=== PATIENT | male | born 1980 | race Caucasian/White ===

== ENCOUNTER 2017-05-18 09:06 | Emergency (ER) | payer BC ==
[~2017-05-18] VITALS: Ht 190.5 cm; Wt 77.0 kg
[~2017-05-18 09:06] MED LIST: CLIN150 PO
[2017-05-18 09:20] VITALS: BP 125/71; PULSE 88; RESP 18; TEMP 97.8; O2SAT 97
--- NOTE | 2017-05-18 09:59 | PD ---
HPI Chief Complaint: Cold / Flu Symptoms Time Seen by Provider: 09:50 Travel History International Travel<30 days: No Contact w/Intl Traveler<30days: No Traveled to known affect area: No History of Present Illness HPI 37-year-old male presents for evaluation of cough and cold symptoms. He reports that for the past 3 days he has had cough with yellow sputum production , occasional chills and sweats, nasal congestion. He denies sore throat, rash, recent travel. He reports that his children have had similar symptoms. He reports that he did recently receive influenza vaccination. He has no other complaints at this time. [facility] Past Medical History Medical History: Denies Significant Hx Cardiovascular Problems: Yes Diminished Hearing: No Immunizations Current: Yes Past Surgical History Other Surgery: Yes (back) Social History Alcohol Use: No Tobacco Use: Yes (1 ppd) Substance Use: No Allergies-Medications (Allergen,Severity, Reaction): Coded Allergies: No Known Allergies (Verified Adverse Reaction, Unknown, 05/18/17) Reported Meds & Prescriptions Reported Meds & Active Scripts Active Prednisone 20 Mg Tab 20 Mg PO BID 5 Days Proair Hfa 8.5 GM Inh (Albuterol Sulfate) 90 Mcg/Act Aer 2 Puff INH Q4-6H PRN 108 mcg/actuation Cleocin (Clindamycin HCl) 150 Mg Cap 300 Mg PO Q6 10 Days Review of Systems Except as stated in HPI: all other systems reviewed are Neg Physical Exam Narrative GENERAL: Well-developed well-nourished male in no acute distress SKIN: Warm and dry. HEAD: Atraumatic. Normocephalic. EYES: Pupils equal and round. No scleral icterus. No injection or drainage. ENT: No nasal bleeding or discharge. Mucous membranes pink and moist. NECK: Trachea midline. No JVD. CARDIOVASCULAR: Regular rate and rhythm. No murmur appreciated. RESPIRATORY: No accessory muscle use. Mild Auditory wheezing bilaterally. GASTROINTESTINAL: Abdomen soft, non-tender, nondistended. Hepatic and splenic margins not palpable. MUSCULOSKELETAL: No obvious deformities. No clubbing. No cyanosis. No edema. NEUROLOGICAL: Awake and alert. No obvious cranial nerve deficits. Motor grossly within normal limits. Normal speech. PSYCHIATRIC: Appropriate mood and affect; insight and judgment normal. Data Data Last Documented VS Vital Signs Date Time Temp Pulse Resp B/P (MAP) Pulse Ox O2 Delivery O2 Flow Rate FiO2 05/18/17 09:20 97.8 88 18 125/71 (89) 97 Room Air Orders Orders Influenzae A/B Antigen (05/18/17 09:42) Albuterol-Ipratropium Neb (Duoneb Neb) (05/18/17 10:00) Prednisone (Deltasone) (05/18/17 10:00) Ed Discharge Order (05/18/17 10:12) MDM Medical Decision Making Medical Screen Exam Complete: Yes Emergency Medical Condition: Yes Medical Record Reviewed: Yes Differential Diagnosis Reactive airway disease, bronchitis, pneumonia, influenza Narrative Course The patient received DuoNeb therapy and prednisone. Influenza antigen test has been sent. Influenza antigen is negative. The patient appears to have a viral bronchitis with reactive airway disease. He'll be discharged with albuterol inhaler and short course of prednisone. Diagnosis Primary Impression: Reactive airway disease Qualified Codes: J45.909 - Unspecified asthma, uncomplicated Additional Impression: Bronchitis Departure Forms: Tests/Procedures, Work Release Enter return to work date: May 22, 2017 Additional Instructions: Medication as prescribed. Avoid tobacco products. Follow-up with primary care as needed and return for any emergent medical conditions. Med/Other Pt SpecificInfo: Prescription(s) given Scripts Prednisone (Prednisone) 20 Mg Tab 20 MG PO BID for 5 Days, #10 TAB 0 Refills Prov: Betzaida Thomas MD 05/18/17 Albuterol 8.5 GM Inh (Proair Hfa 8.5 GM Inh) 90 Mcg/Act Aer 2 PUFF INH Q4-6H Y for SHORTNESS OF BREATH, #1 INHALER 0 Refills 108 mcg/actuation Prov: Betzaida Thomas MD 05/18/17 Disposition: 01 DISCHARGE HOME Condition: Stable Nishant Pryor May 18, 2017 09:59
[2017-05-18] MEDS ORDERED: predniSONE 20 MG TAB PO ONE (10:00)
[2017-05-18] MEDS ORDERED: PRED20 PO (10:10)
[2017-05-18] MEDS ORDERED: ALBUAER3 INH (10:10)
[2017-05-18] MEDS: RESP: ALBUTEROL 2.5 MG/IPRATROPIUM 0.5 MG NEB (SCH) INH (10:10)
== END 2017-05-18 10:37 | disposition home or self-care (01) ==
LOC: PHEFT 09:06
DX: J45.909 Unspecified asthma, uncomplicated (principal); F17.200 Nicotine dependence, unspecified, uncomplicated
CPT/HCPCS: 87804; 94640; 94664; 99284; J7512

== ENCOUNTER 2017-06-19 17:40 | Emergency (ER) | payer BC ==
[~2017-06-19] VITALS: Ht 190.5 cm; Wt 78.0 kg
[~2017-06-19 17:40] MED LIST changes: +ALBUAER3 INH; +PRED20 PO
[2017-06-19 17:48] VITALS: BP 120/57; PULSE 46; RESP 16; TEMP 98.9; O2SAT 98
[2017-06-19 18:23] LABS: BLOOD, URINE LARGE (NEG); GLUCOSE,URINE NEG (NEG); KETONE, URINE 15 mg/dL (NEG); NITRITE,URINE NEG (NEG)
[2017-06-19 18:32] LABS: URINE COLOR PINK (YELLW/STRAW)
[2017-06-19 18:33] LABS: RBC, URINE INNUM /hpf (0-3); SQUAMOUS EPITHELIAL CELL URINE 0-5 /hpf (0-5); WBC, URINE INNUM /hpf (0-5)
[2017-06-19 18:34] LABS: BACTERIA, URINE FEW /hpf; COMMENT (UR) CULTURE INDICATED; CULTURE IF INDICATED CULTURE INDICATED
[2017-06-19 19:18] VITALS: BP 136/71; PULSE 88; O2SAT 100
[2017-06-19] MEDS ORDERED: SODIUM CHLOR 0.9% 1000 ML INJ 1,000 ML IV ONE (19:36)
--- NOTE | 2017-06-19 19:36 | PD ---
HPI Chief Complaint: Complaint Time Seen by Provider: 19:24 Travel History International Travel<30 days: No Contact w/Intl Traveler<30days: No Traveled to known affect area: No History of Present Illness HPI 37-year-old male presents to the emergency department for hematuria. Patient states yesterday noted discomfort and burning with urination without report of penile discharge. Patient has had no fever or chills. Patient's had nausea without vomiting. Today started having lower abdominal pain and hematuria. Patient has chronic back pain secondary to previous remote surgery and so isn't aware of new back pain. No prior history of UTI pyelonephritis obstructive uropathy or kidney stones. Patient rates pain as moderate to severe. Patient is taking no medications for symptoms. Patient did take a bath with some symptom relief. Patient states due to ongoing discomfort decided to come to the emergency room for evaluation. Patient has no chronic medical conditions. Patient takes no medications on a daily basis. Denies any substance use or alcohol use; admits to tobacco use. PFSH Past Medical History Narrative Medical Back surgery; tobacco use; nursing notes reviewed Cardiovascular Problems: Yes Diminished Hearing: No Immunizations Current: Yes ?: Not Past Surgical History Other Surgery: Yes (back) Social History Alcohol Use: No Tobacco Use: Yes (1 ppd) Substance Use: No Allergies-Medications (Allergen,Severity, Reaction): Coded Allergies: No Known Allergies (Verified Adverse Reaction, Unknown, 06/19/17) Reported Meds & Prescriptions Reported Meds & Active Scripts Active Review of Systems Except as stated in HPI: all other systems reviewed are Neg General / Constitutional: No: Fever, Chills HENT: No: Congestion Cardiovascular: No: Chest Pain or Discomfort Gastrointestinal: Positive: Nausea, Abdominal Pain, No: Vomiting, Diarrhea, Hematemesis, Hematochezia Genitourinary: Positive: Dysuria, Hematuria, Flank Pain, No: Urgency, Frequency Musculoskeletal: No: Myalgias, Arthralgias Skin: No Rash Psychiatric: No: Anxiety Hematologic/Lymphatic: No: Lymph Node Enlargement Physical Exam Narrative GENERAL: Well-developed well-nourished female in no acute distress no respiratory distress SKIN: Warm and dry. HEAD: Normocephalic. EYES: No scleral icterus. No injection or drainage. NECK: Supple, trachea midline. No JVD or lymphadenopathy. CARDIOVASCULAR: Regular rate and rhythm without murmurs, gallops, or rubs. RESPIRATORY: Breath sounds equal bilaterally. No accessory muscle use. GASTROINTESTINAL: Abdomen soft, diffusely tender, nondistended. MUSCULOSKELETAL: No cyanosis, or edema. BACK: Nontender without obvious deformity. Left greater than right CVA tenderness. Data Data Last Documented VS Vital Signs Date Time Temp Pulse Resp B/P (MAP) Pulse Ox O2 Delivery O2 Flow Rate FiO2 06/19/17 19:18 88 136/71 (92) 100 06/19/17 17:48 98.9 16 Orders Orders Urinalysis - C+S If Indicated (06/19/17 17:50) Urine Culture (06/19/17 17:50) Ct Abd/Pel W/O Iv Contrast (06/19/17 ) Complete Blood Count With Diff (06/19/17 19:36) Comprehensive Metabolic Panel (06/19/17 19:36) Ecg Monitoring (06/19/17 19:36) Iv Access Insert/Monitor (06/19/17 19:36) Ketorolac Inj (Toradol Inj) (06/19/17 19:45) Ondansetron Inj (Zofran Inj) (06/19/17 19:45) Sodium Chloride 0.9% Flush (Ns Flush) (06/19/17 19:45) Sodium Chlor 0.9% 1000 Ml Inj (Ns 1000 M (06/19/17 19:36) Ceftriaxone Inj (Rocephin Inj) (06/19/17 19:45) Ed Discharge Order (06/19/17 20:39) Labs Laboratory Tests Test 06/19/17 17:50 06/19/17 20:00 Urine Color PINK Urine Turbidity CLOUDY Urine pH 7.0 Urine Specific [place] 1.020 Urine Protein 100 mg/dL Urine Glucose (UA) NEG mg/dL Urine Ketones 15 mg/dL Urine Occult Blood LARGE Urine Nitrite NEG Urine Bilirubin NEG Urine Leukocyte Esterase LARGE Urine RBC INNUM /hpf Urine WBC INNUM /hpf Urine Squamous Epithelial Cells 0-5 /hpf Urine Bacteria FEW /hpf Microscopic Urinalysis Comment CULTURE INDICATED White Blood Count 18.3 TH/MM3 Red Blood Count 5.06 MIL/MM3 Hemoglobin 14.1 GM/DL Hematocrit 43.9 % Mean Corpuscular Volume 86.9 FL Mean Corpuscular Hemoglobin 28.0 PG Mean Corpuscular Hemoglobin Concent 32.2 % Red Cell Distribution Width 13.0 % Platelet Count 279 TH/MM3 Mean Platelet Volume 8.1 FL Neutrophils (%) (Auto) 80.9 % Lymphocytes (%) (Auto) 10.9 % Monocytes (%) (Auto) 6.1 % Eosinophils (%) (Auto) 0.5 % Basophils (%) (Auto) 1.6 % Neutrophils # (Auto) 14.8 TH/MM3 Lymphocytes # (Auto) 2.0 TH/MM3 Monocytes # (Auto) 1.1 TH/MM3 Eosinophils # (Auto) 0.1 TH/MM3 Basophils # (Auto) 0.3 TH/MM3 CBC Comment DIFF FINAL Differential Comment Blood Urea Nitrogen 10 MG/DL Creatinine 0.86 MG/DL Random Glucose 91 MG/DL Total Protein 7.4 GM/DL Albumin 3.9 GM/DL Calcium Level 8.9 MG/DL Alkaline Phosphatase 65 U/L Aspartate Amino Transf (AST/SGOT) 15 U/L Alanine Aminotransferase (ALT/SGPT) 19 U/L Total Bilirubin 0.5 MG/DL Sodium Level 138 MEQ/L Potassium Level 4.1 MEQ/L Chloride Level 107 MEQ/L Carbon Dioxide Level 22.2 MEQ/L Anion Gap 9 MEQ/L Estimat Glomerular Filtration Rate 100 ML/MIN MDM Medical Decision Making Medical Screen Exam Complete: Yes Emergency Medical Condition: Yes Medical Record Reviewed: Yes Differential Diagnosis UTI urethritis prostatitis renal colic atypical appendicitis Narrative Course Patient with markedly abnormal urine consistent with acute cystitis possible pyelonephritis with chronic back pain that may interfere with patient's impression interpretation of renal colic therefore will proceed with CT abdomen and pelvis. Patient does not want to have IV access for fluids and IV antibiotics Patient has changed his mind is agreeable to have IV access and fluids IV antibiotics; CBC complete metabolic panel CT kidney stone protocol ordered along with 1 L normal saline Toradol 30 mg IV and Rocephin [address] abdomen and pelvis reveals no acute abnormality specifically no obstructive uropathy or hydronephrosis or hydroureter and no perinephric stranding for pyelonephritis or kidney stone or nephrolithiasis also patient's appendix is visualized by the reading radiologist and read as normal and no inflammatory changes are noted on imaging per reading radiologist of the abdominal or pelvic structures. Patient appears to have urinary tract infection for PCR to urine specimen and patient will be discharged with prescription for Cipro. Patient also had a one-time dose of azithromycin in the emergency department. Diagnosis Primary Impression: UTI (urinary tract infection) Referrals: Primary Care Physician call for appointment Patient Instructions: General Instructions Departure Forms: Tests/Procedures, Work Release Special Instructions: no work x 2 days Additional Instructions: Increase fluid hydration Complete course of antibiotic as prescribed; avoid activities that may put strain on your ankles while taking your antibiotic as discussed Follow-up with her primary care provider Monitor temperature every 4 hours with thermometer and take as needed acetaminophen/Tylenol every 4 hours for fever 100.4F or greater Take ibuprofen/Advil/Motrin every 6-8 hours as needed for fever 100.4F or greater or for pain associated inflammation Return to the emergency department for any concerns or change in condition No work 2 days Med/Other Pt SpecificInfo: Prescription(s) given Scripts Phenazopyridine (Pyridium) 100 Mg Tab 100 MG PO Q8H Y for DYSURIA, #6 TAB 0 Refills Prov: Sia Weston MD 06/19/17 Tramadol (Tramadol) 50 Mg Tab 50 MG PO Q6H Y for PAIN, #7 TAB 0 Refills Prov: Sia Weston MD 06/19/17 Ciprofloxacin (Cipro) 500 Mg Tab 500 MG PO BID for Infection for 10 Days, #20 TAB 0 Refills Prov: Sia Weston MD 06/19/17 Disposition: 01 DISCHARGE HOME Condition: Stable Sia Weston MD Jun 19, 2017 19:36
[2017-06-19] MEDS ORDERED: KETOROLAC TROMETHAMINE 30 MG/ML (IVP) VIAL IV PUSH ONE (19:45)
[2017-06-19] MEDS ORDERED: SODIUM CHLORIDE 0.9% FLUSH 10 ML FLUSH IVF PRN (19:45)
[2017-06-19] MEDS ORDERED: ONDANSETRON HCL 4 MG/2 ML VIAL IV PUSH ONE (19:45)
[2017-06-19] MEDS ORDERED: cefTRIAXone INJ 1,000 MG in SODIUM CHLORIDE 0.9% INJ 100 ML IV ONE (19:45)
--- NOTE | 2017-06-19 20:07 | RADRPT ---
EXAM DATE/TIME: 06/19/2017 19:44 [facility] COMPARISON: No previous studies available for comparison. INDICATIONS : Gross hematuria. Bilateral lower abdominal pain. ORAL CONTRAST: No oral contrast ingested. RADIATION DOSE: 12.28 CTDIvol (mGy) MEDICAL HISTORY : None SURGICAL HISTORY : Fusion, lumbar. ENCOUNTER: Initial ACUITY: 1 day PAIN SCALE: 8/10 LOCATION: Bilateral lower quadrant TECHNIQUE: Volumetric scanning of the abdomen and pelvis was performed. Using automated exposure control and ad justment of the mA and/or kV according to patient size, radiation dose was kept as low as reasonably achievable to obtain optimal diagnostic quality images. DICOM format image data is available electro nically for review and comparison. FINDINGS: LOWER LUNGS: The visualized lower lungs are clear. LIVER: Homogeneous density without lesion. There is no dilation of the biliary tree. No calcified gallston es. SPLEEN: Normal size without lesion. PANCREAS: Within normal limits. KIDNEYS: Normal in size and shape. There is no mass, stone, or hydronephrosis. ADRENAL GLANDS: Within normal limits. VASCULAR: There is no aortic aneurysm. BOWEL/MESENTERY: The stomach, small bowel, and colon demonstrate no acute abnormality. There is no free intraperitone al air or fluid. The appendix is normal. ABDOMINAL WALL: Within normal limits. RETROPERITONEUM: There is no lymphadenopathy. BLADDER: No wall thickening or mass. REPRODUCTIVE: Within normal limits. INGUINAL: There is no lymphadenopathy or hernia. MUSCULOSKELETAL: Within normal limits for patient age. CONCLUSION: No acute disease. Omar Rosenbaum MD on June 19, 2017 at 20:03 Board Certified Radiologist. This report was verified electronically.
[2017-06-19 20:13] LABS: AUTOMATED NEUTROPHIL # 14.8 TH/MM3 (1.8-7.7); BASOPHIL # 0.3 TH/MM3 (0-0.2); BASOPHIL % 1.6 % (0.0-2.0); EOSINOPHIL # 0.1 TH/MM3 (0-0.4); EOSINOPHIL % 0.5 % (0.0-4.0); HEMATOCRIT 43.9 % (39.0-51.0); LYMPH % 10.9 % (9.0-44.0); MEAN CELL VOLUME 86.9 FL (80.0-100.0); MEAN CORPUSCULAR HGB CONC 32.2 % (32.0-36.0); MONO % 6.1 % (0.0-8.0); NEUT % 80.9 % (16.0-70.0); PLATELET COUNT 279 TH/MM3 (150-450); RED BLOOD COUNT 5.06 MIL/MM3 (4.50-5.90); WHITE BLOOD COUNT 18.3 TH/MM3 (4.0-11.0)
[2017-06-19 20:16] LABS: HEMO FLAGS DIFF FINAL
[2017-06-19 20:22] LABS: CHLORIDE 107 MEQ/L (98-107); POTASSIUM 4.1 MEQ/L (3.5-5.1); SODIUM (NA) 138 MEQ/L (136-145)
[2017-06-19 20:25] LABS: ANION GAP 9 MEQ/L (5-15); BICARBONATE 22.2 MEQ/L (21.0-32.0)
[2017-06-19 20:26] LABS: BLOOD UREA NITROGEN 10 MG/DL (7-18)
[2017-06-19 20:29] LABS: ALT (GPT) 19 U/L (12-78); AST (GOT) 15 U/L (15-37); GLOMERULAR FILTRATION RATE 100 ML/MIN (>89)
[2017-06-19 20:30] LABS: TOTAL BILIRUBIN ADULT 0.5 MG/DL (0.2-1.0)
[2017-06-19 20:31] LABS: ALKALINE PHOSPHATASE 65 U/L (45-117)
[2017-06-19] MEDS ORDERED: TRAM50TA PO (20:44)
[2017-06-19] MEDS ORDERED: PHEN0.4T PO (20:44)
[2017-06-19] MEDS ORDERED: CIPR-9 PO (20:44)
[2017-06-19] MEDS ORDERED: AZITHROMYCIN PWD FOR SUSP 1 GM PACKET PO ONE (20:45)
[2017-06-20 01:34] LABS: CHLAMYDIA PCR DETECTED (NOT DETECT); NEISSERIA PCR NOT DETECTED (NOT DETECT)
== END 2017-06-19 21:14 | disposition home or self-care (01) ==
LOC: PHED 17:40 → PHEFT 21:14
DX: N39.0 Urinary tract infection, site not specified (principal); B96.1 Klebsiella pneumoniae [K. pneumoniae] as the cause of diseases classified elsewhere; R31.9 Hematuria, unspecified; F17.200 Nicotine dependence, unspecified, uncomplicated
CPT/HCPCS: 74176; 80053; 81001; 85025; 87077; 87086; 87186; 87491; 87591; 96365; 96375; 99285; J0696; J1885; J2405; J7030

== ENCOUNTER 2017-07-28 09:04 | Emergency (ER) | payer BC ==
[~2017-07-28] VITALS: Ht 190.5 cm; Wt 79.2 kg
[~2017-07-28 09:04] MED LIST changes: -ALBUAER3 INH; +CIPR-9 PO; -CLIN150 PO; +PHEN0.4T PO; -PRED20 PO; +TRAM50TA PO
[2017-07-28 09:25] VITALS: BP 133/89; PULSE 73; RESP 17; TEMP 98.4; O2SAT 99
[2017-07-28 09:42] LABS: BILIRUBIN, URINE NEG (NEG); BLOOD, URINE NEG (NEG); GLUCOSE,URINE NEG (NEG); KETONE, URINE NEG (NEG); NITRITE,URINE NEG (NEG); URINE LEUKOCYTE ESTERASE NEG (NEG)
[2017-07-28 10:07] LABS: URINE COLOR YELLOW (YELLW/STRAW)
[2017-07-28 10:08] LABS: RBC, URINE 0-3 /hpf (0-3); SQUAMOUS EPITHELIAL CELL URINE 0-5 /hpf (0-5)
--- NOTE | 2017-07-28 10:13 | PD ---
HPI Chief Complaint: Skin Problem Time Seen by Provider: 09:41 Travel History International Travel<30 days: No Contact w/Intl Traveler<30days: No Traveled to known affect area: No History of Present Illness HPI 37 y/o male presents with a blue light discoloration to his back that is gotten progressive over the past couple of weeks. He denies specific associated symptoms with it other than chronic back pain. He does note that he uses a heating pad but hasn't for a week. He took his antibiotic from last visit and denies symptoms of that now. He denies any trauma. Quality is blue. Location is back. He denies modifying factors. PFSH Past Medical History Cardiovascular Problems: Yes Diminished Hearing: No Immunizations Current: Yes Past Surgical History Other Surgery: Yes (back) Social History Alcohol Use: No Tobacco Use: Yes (1 ppd) Substance Use: No Allergies-Medications (Allergen,Severity, Reaction): Coded Allergies: No Known Allergies (Verified Adverse Reaction, Unknown, 07/28/17) Reported Meds & Prescriptions Reported Meds & Active Scripts Active Pyridium (Phenazopyridine HCl) 100 Mg Tab 100 Mg PO Q8H PRN Tramadol (Tramadol HCl) 50 Mg Tab 50 Mg PO Q6H PRN Cipro (Ciprofloxacin HCl) 500 Mg Tab 500 Mg PO BID 10 Days Review of Systems Except as stated in HPI: all other systems reviewed are Neg Physical Exam Narrative GENERAL: Well-nourished, well-developed patient. SKIN: Warm and dry. Particularly did hyperpigmented rash noted to back which appears to be heating pad rash HEAD: Normocephalic and atraumatic. EYES: No injection or drainage. ENT: No nasal drainage noted. NECK: Supple, trachea midline. CARDIOVASCULAR: Regular rate and rhythm RESPIRATORY: Breath sounds equal bilaterally. No accessory muscle use. GASTROINTESTINAL: Abdomen soft, non-tender, nondistended. EXTREMITIES: No edema. BACK: Nontender without obvious deformity. NEUROLOGICAL: Awake and alert. Motor and sensory grossly within normal limits. Normal speech. Data Data Last Documented VS Vital Signs Date Time Temp Pulse Resp B/P (MAP) Pulse Ox O2 Delivery O2 Flow Rate FiO2 07/28/17 09:25 98.4 73 17 133/89 (104) 99 Orders Orders Urinalysis - C+S If Indicated (07/28/17 09:31) Ed Discharge Order (07/28/17 10:13) Labs Laboratory Tests Test 07/28/17 09:27 Urine Collection Type CLEAN CATCH Urine Color YELLOW Urine Turbidity CLEAR Urine pH 7.0 Urine Specific [place] 1.022 Urine Protein NEG mg/dL Urine Glucose (UA) NEG mg/dL Urine Ketones NEG mg/dL Urine Occult Blood NEG Urine Nitrite NEG Urine Bilirubin NEG Urine Leukocyte Esterase NEG Urine RBC 0-3 /hpf Urine Squamous Epithelial Cells 0-5 /hpf Microscopic Urinalysis Comment CULT NOT INDICATED Urine Collection Time 09:27 [facility] Medical Decision Making Medical Screen Exam Complete: Yes Emergency Medical Condition: Yes Medical Record Reviewed: Yes (pmh confirmed, here for uti given cipro, sens to this) Interpretation(s) ua no acute Differential Diagnosis heating pad rash, allergic, eczema... Narrative Course Initially patient did not feel comfortable without blood work so this was ordered. After he saw images online that confirmed my diagnosis he was okay with canceling blood work, will await us sent from triage ua no acute, Patient denies any new complaints, all questions answered. Patient knows that follow up is incumbent on them and to return to the emergency room immediately if new or worsening symptoms develop. Patient given strict return precautions, vitals reviewed and are normal, agrees to further workup as an outpatient. Diagnosis Primary Impression: Erythema ab igne Patient Instructions: General Instructions Additional Instructions: return as needed, follow with primary, stop heating pad use Med/Other Pt SpecificInfo: No Change to Meds Disposition: 01 DISCHARGE HOME Condition: Stable Emilee Vasquez MD Jul 28, 2017 10:13
== END 2017-07-28 11:14 | disposition home or self-care (01) ==
LOC: PHED 09:04
DX: L59.0 Erythema ab igne [dermatitis ab igne] (principal); G89.29 Other chronic pain; F17.200 Nicotine dependence, unspecified, uncomplicated; Z86.79 Personal history of other diseases of the circulatory system
CPT/HCPCS: 81001; 99283

== ENCOUNTER 2017-10-19 05:29 | Emergency (ER) | payer BC ==
[~2017-10-19] VITALS: Ht 190.5 cm; Wt 78.4 kg
[2017-10-19 05:35] VITALS: BP 127/77; PULSE 64; RESP 18; TEMP 97.8; O2SAT 97
--- NOTE | 2017-10-19 06:05 | PD ---
HPI Chief Complaint: ENT Complaint Time Seen by Provider: 05:47 Travel History International Travel<30 days: No Contact w/Intl Traveler<30days: No Traveled to known affect area: No History of Present Illness HPI The patient is a 37-year-old male that complains of a swollen and painful throat for 3 days. The patient states this started as an earache in his right ear but the ear pain has subsided. He denies any fever or cough. The pain is a 7/10. The pain is sharp and burning. PFSH Past Medical History Cardiovascular Problems: Yes Diminished Hearing: No Immunizations Current: Yes Tetanus Vaccination: > 5 Years Influenza Vaccination: No Past Surgical History Other Surgery: Yes (back) Social History Alcohol Use: No Tobacco Use: Yes (1 ppd) Substance Use: No Allergies-Medications (Allergen,Severity, Reaction): Coded Allergies: No Known Allergies (Verified Adverse Reaction, Unknown, 07/28/17) Reported Meds & Prescriptions Reported Meds & Active Scripts Active Percocet (Oxycodone-Acetaminophen) 5-325 mg Tab 1 Tab PO Q4H PRN Prednisone 50 Mg Tab 50 Mg PO BID PRN Pyridium (Phenazopyridine HCl) 100 Mg Tab 100 Mg PO Q8H PRN Tramadol (Tramadol HCl) 50 Mg Tab 50 Mg PO Q6H PRN Cipro (Ciprofloxacin HCl) 500 Mg Tab 500 Mg PO BID 10 Days Review of Systems Except as stated in HPI: all other systems reviewed are Neg Physical Exam Narrative GENERAL: Well-nourished, well-developed patient in moderate apparent distress with his sore throat. His vital signs are normal. SKIN: Focused skin assessment warm/dry. HEAD: Normocephalic. EYES: No scleral icterus. No injection or drainage. NECK: Supple, trachea midline. No JVD or lymphadenopathy. CARDIOVASCULAR: Regular rate and rhythm without murmurs, gallops, or rubs. RESPIRATORY: Breath sounds equal bilaterally. No accessory muscle use. GASTROINTESTINAL: Abdomen soft, non-tender, nondistended. MUSCULOSKELETAL: No cyanosis, or edema. BACK: Nontender without obvious deformity. No CVA tenderness. ENT: The tympanic membranes are normal. The throat is bright red with swelling of the uvula and soft palate but no exudate or abscess is noted. Data Data Last Documented VS Vital Signs Date Time Temp Pulse Resp B/P (MAP) Pulse Ox O2 Delivery O2 Flow Rate FiO2 10/19/17 05:48 18 10/19/17 05:35 97.8 64 127/77 (94) 97 Orders Orders Group A Rapid Strep Screen (10/19/17 05:59) Prednisone (Deltasone) (10/19/17 06:15) Strep Culture (Group A) (10/19/17 06:03) MDM Medical Decision Making Medical Screen Exam Complete: Yes Emergency Medical Condition: Yes Medical Record Reviewed: Yes Interpretation(s) The strep screen is negative for group A strep antigen. Differential Diagnosis Strep pharyngitis, viral pharyngitis, infectious mononucleosis-unlikely Narrative Course The patient has a viral pharyngitis. He will be given prednisone on a tapered course for 8 days. He will also be given Percocet for the pain as well as a work excuse for several days. Diagnosis Primary Impression: Viral pharyngitis Additional Instructions: The prednisone tablets calm down your throat. They are 1 tablet twice daily for 4 days followed by 1 tablet daily for 4 days. Also, use warm salt water gargles to keep your throat clean. Med/Other Pt SpecificInfo: Prescription(s) given Scripts Oxycodone-Acetaminophen (Percocet) 5-325 mg Tab 1 TAB PO Q4H Y for PAIN, #15 TAB 0 Refills Prov: Filibreto Gutierrez MD 10/19/17 Prednisone (Prednisone) 50 Mg Tab 50 MG PO BID Y for 4 days than daily X 4 days, #12 TAB 0 Refills Prov: Filiberto Gutierrez MD 10/19/17 Disposition: 01 DISCHARGE HOME Condition: Stable Filiberto Gutierrez MD Oct 19, 2017 06:05
[2017-10-19] MEDS ORDERED: PRED50 PO (06:09)
[2017-10-19] MEDS ORDERED: predniSONE 20 MG TAB PO ONE (06:15)
[2017-10-19] MEDS ORDERED: PERC5TAB12 PO (06:31)
== END 2017-10-19 06:44 | disposition home or self-care (01) ==
LOC: PHED 05:29
DX: J02.9 Acute pharyngitis, unspecified (principal); F17.210 Nicotine dependence, cigarettes, uncomplicated
CPT/HCPCS: 87081; 87880; 99283; J7512